=== PATIENT | female | born 1985 | race Caucasian/White ===

== ENCOUNTER 2017-03-13 22:17 | Emergency (ER) | payer MEDICAID ==
[2017-03-13 22:27] VITALS: RESP 16; O2SAT 97
--- NOTE | 2017-03-13 23:03 | EDPHY ---
H & P Stated Complaint: JACKSON, "white out" HPI/ROS: HPI CHIEF COMPLAINT: Multiple complaints HISTORY OF PRESENT ILLNESS: This patient very pleasant 31-year-old female denies any significant medical history she presents emergency room with multitude of symptoms. She states over the past year she has been intermittently dealing with pressure in her head as well as intermittent visual disturbances. She states she was at home this evening. She did not feel very well. She states she feels ill but will not describe any specific symptoms. She went saw her primary care doctor today about her symptoms and was set up for blood work and an outpatient EEG. She has not done the EEG. She presents emergency room this evening after she states she was seated outside resting. All the sudden she developed white numbness across her vision. Pressure in her head. No loss of vision. No curtain vision. No eye pain. No floaters. No arch you. No neck pain. She denies chest pain or shortness of breath. Patient states that she felt somewhat confused. She thinks maybe a migraine headache. She had this happen to her eye year ago. She was worked up for MS. she states she was not diagnosed with MS. She also tells me initially that she electrical shock going throughout her entire body at times. Starts in her posterior neck was throughout her head down her body. Diffusely. Additionally she reports to me if this event everything was purple. She Now is feeling better. But does state she has pressure in her head. She is unsure there is a migraine headache. She denies any focal numbness or tingling. Denies weakness. Denies trouble with speech. There is no bowel bladder incontinence. She did not bite her tongue. There is no double vision. Additionally she denies chest pain, shortness of breath, abdominal pain. Denies diarrhea. Does state she had nausea. And 1 episode of vomiting. Past Medical History: No significant medical history Past Surgical History: Social History: Smokes tobacco, denies illicit drugs or alcohol. Family History: Noncontributory ROS REVIEW OF SYSTEMS: A comprehensive 10 point review of systems is otherwise negative aside from elements mentioned in the history of present illness. Exam Constitutional appears well, nontoxic, triage nursing summary reviewed, vital signs reviewed, awake/alert. Eyes normal conjunctivae and sclera, EOMI, PERRLA. HENT normal inspection, atraumatic, moist mucus membranes, no epistaxis, neck supple/ no meningismus, no raccoon eyes. Respiratory clear to auscultation bilaterally, normal breath sounds, no respiratory distress, no wheezing. Cardiovascular rate normal, regular rhythm, no murmur, no edema, distal pulses normal. Gastrointestinal soft, non-tender, no rebound, no guarding, normal bowel sounds, no distension, no pulsatile mass. Genitourinary no CVA tenderness. Musculoskeletal no midline vertebral tenderness, full range of motion, no calf swelling, no tenderness of extremities, no meningismus, good pulses, neurovascularly intact. Skin pink, warm, & dry, no rash, skin atraumatic. Neurologic I do not appreciate focal neurological deficit on exam, normal neuro exam for me, awake, alert and oriented x 3, AAOx3, moves all 4 extremities equally, motor intact, sensory intact, CN II-XII intact, normal cerebellar, normal vision, normal speech. Psychiatric normal mood/affect. Heme/Lymph/Immune no lymphadenopathy. Differential Diagnosis: Includes but is not limited to in a particular order: Migraine headaches, MS, seizure, focal seizure, intracranial bleed, electrolyte disturbance, infection Medical Decision Making: Plan for this patient workup CT scan head without contrast rule out acute intracranial abnormality, additionally blood work, urinalysis, EKG. Gentle IV hydration Zofran for nausea. Re-evaluation: EKG interpretation by me on record in [facility] system. Impression time of EKG 2322, sinus rhythm rate of 87 some motion artifact. T-wave abnormality V3 flattening the to. No ST elevation. No significant ST depression. 1218AM: On re-evaluation patient resting comfortably. Asymptomatic. No headache. No chest pain or shortness of breath. No focal weakness numbness or tingling. Re-examination normal neurological exam no focal neuro deficit. Her workup here in emergency room includes CT scan of her head which is unremarkable , blood work which is unremarkable normal electrolytes and no high white count, urinalysis clean. I do recommend she follows with her primary care doctor as well as Neurology. I have no evidence of intracranial bleed, seizure, or severe headache. Recommend close follow-up with primary care doctor as well as Neurology. I do feel that she would benefit from an MRI at some point but not emergently in the ER. MRI for MS protocol. She understands this. Additionally she understands return to the ER she develops worsening symptoms questions or concerns. Source: Patient - Personal History LMP (Females 10-55): IUD In Place Current Tetanus/Diphtheria Vaccine: Yes Current Tetanus Diphtheria and Acellular Pertussis (TDAP): Yes - Medical/Surgical History Hx Asthma: No Hx Chronic Respiratory Disease: No Hx Diabetes: No Hx Cardiac Disease: No Hx Renal Disease: No Hx Cirrhosis: No Hx Alcoholism: No Hx HIV/AIDS: No Hx Splenectomy or Spleen Trauma: No - Social History Smoking Status: Former smoker Constitutional: Initial Vital Signs Temperature (C) 37 C 03/13/17 22:25 Heart Rate 94 03/13/17 22:25 Respiratory Rate 16 03/13/17 22:25 Blood Pressure 108/71 03/13/17 22:25 O2 Sat (%) 97 03/13/17 22:25 O2 Delivery Mode Room Air Allergies/Adverse Reactions: metronidazole [From Flagyl] Allergy (Verified 03/13/17 22:23) stevia Allergy (Uncoded 03/13/17 22:24) Home Medications: Medication Instructions Recorded None 07/11/10 Ativan 11/10/15 MIRENA 03/13/17 Spironolactone 03/13/17 Medical Decision Making - Diagnostics Imaging Results: Imaging Impressions Head CT 03/13/17 23:14 Impression: 1. No significant intracranial abnormality seen. If symptoms worsen, additional imaging may be necessary. Findings discussed with Eliazar Yang MD at 23:58 hour, 03/13/2017. - Data Points Laboratory Results: Laboratory Results 03/13/17 03:00 03/13/17 03:00 03/13/17 03/13/17 03/13/17 23:30 03:00 03:00 WBC RBC Hgb Hct MCV MCH MCHC RDW Plt Count MPV Neut % (Auto) Lymph % (Auto) [place] % (Auto) Eos % (Auto) Baso % (Auto) Nucleat RBC Rel Count Absolute Neuts (auto) Absolute Lymphs (auto) Absolute Monos (auto) Absolute Eos (auto) Absolute Basos (auto) Absolute Nucleated RBC Immature Gran % Immature Gran # PT INR Sodium 140 mEq/L mEq/L (134-144) Potassium 3.7 mEq/L mEq/L (3.5-5.2) Chloride 105 mEq/L mEq/L (97-110) Carbon Dioxide 22 mEq/l mEq/l (22-31) Anion Gap 13 mEq/L mEq/L (8-16) BUN 10 mg/dL mg/dL (7-23) Creatinine 0.6 mg/dL mg/dL (0.6-1.0) Estimated GFR > 60 Glucose 132 mg/dL H mg/dL (70-100) Calcium 9.1 mg/dL mg/dL (8.5-10.4) Troponin I < 0.012 ng/mL ng/mL (0.000-0.034) Beta HCG, Qual NEGATIVE Urine Color YELLOW Urine Appearance HAZY Urine pH 5.0 (5.0-7.5) Ur Specific [place] 1.012 (1.002-1.030) Urine Protein NEGATIVE (NEGATIVE) Urine Ketones NEGATIVE (NEGATIVE) Urine Blood 1+ H (NEGATIVE) Urine Nitrate NEGATIVE (NEGATIVE) Urine Bilirubin NEGATIVE (NEGATIVE) Urine Urobilinogen NEGATIVE EU EU (0.2-1.0) Ur Leukocyte Esterase NEGATIVE (NEGATIVE) Urine RBC 1-3 /hpf /hpf (0-3) Urine WBC 1-3 /hpf /hpf (0-3) Ur Epithelial Cells TRACE /lpf /lpf (NONE-1+) Urine Bacteria TRACE /hpf H /hpf (NONE SEEN) Urine Mucus TRACE /lpf /lpf (NONE-1+) Urine Glucose NEGATIVE (NEGATIVE) 03/13/17 03/13/17 03:00 03:00 WBC 6.34 10^3/uL 10^3/uL (3.80-9.50) RBC 4.21 10^6/uL 10^6/uL (4.18-5.33) Hgb 13.8 g/dL g/dL (12.6-16.3) Hct 39.4 % % (38.0-47.0) MCV 93.6 fL fL (81.5-99.8) MCH 32.8 pg pg (27.9-34.1) MCHC 35.0 g/dL g/dL (32.4-36.7) RDW 11.7 % % (11.5-15.2) Plt Count 243 10^3/uL 10^3/uL (150-400) MPV 10.7 fL fL (8.7-11.7) Neut % (Auto) 51.1 % % (39.3-74.2) Lymph % (Auto) 38.8 % % (15.0-45.0) [place] % (Auto) 7.1 % % (4.5-13.0) Eos % (Auto) 2.2 % % (0.6-7.6) Baso % (Auto) 0.6 % % (0.3-1.7) Nucleat RBC Rel Count 0.0 % % (0.0-0.2) Absolute Neuts (auto) 3.24 10^3/uL 10^3/uL (1.70-6.50) Absolute Lymphs (auto) 2.46 10^3/uL 10^3/uL (1.00-3.00) Absolute Monos (auto) 0.45 10^3/uL 10^3/uL (0.30-0.80) Absolute Eos (auto) 0.14 10^3/uL 10^3/uL (0.03-0.40) Absolute Basos (auto) 0.04 10^3/uL 10^3/uL (0.02-0.10) Absolute Nucleated RBC 0.00 10^3/uL 10^3/uL (0-0.01) Immature Gran % 0.2 % % (0.0-1.1) Immature Gran # 0.01 10^3/uL 10^3/uL (0.00-0.10) PT 13.1 SEC SEC (12.0-15.0) INR 1.00 (0.83-1.16) Sodium Potassium Chloride Carbon Dioxide Anion Gap BUN Creatinine Estimated GFR Glucose Calcium Troponin I Beta HCG, Qual Urine Color Urine Appearance Urine pH Ur Specific [place] Urine Protein Urine Ketones Urine Blood Urine Nitrate Urine Bilirubin Urine Urobilinogen Ur Leukocyte Esterase Urine RBC Urine WBC Ur Epithelial Cells Urine Bacteria Urine Mucus Urine Glucose Medications Given: Discontinued Medications Sodium Chloride (Ns) 1,000 mls @ 0 mls/hr IV ONCE ONE; Wide Open PRN Reason: Protocol Stop: 03/13/17 23:15 Last Admin: 03/13/17 23:19 Dose: 1,000 mls Ondansetron HCl (Zofran) 4 mg IVP EDNOW ONE Stop: 03/13/17 23:15 Last Admin: 03/14/17 00:18 Dose: Not Given Departure - Departure Disposition: Home, Routine, Self-Care Clinical Impression: Dizziness Condition: Good Instructions: Lightheadedness (ED), Dizziness (ED) Additional Instructions: 1. Return to the emergency room if he develops worsening symptoms questions or concerns. 2. Stay well-hydrated. 3. Please follow up with your primary care doctor. 4. Additionally please follow up with Neurology. Referrals: Lolly Mccoy MD [Primary Care Provider] - As per Instructions Scotty Aguilar DO [Medical Doctor] - As per Instructions
[2017-03-13] MEDS ORDERED: ONDANSETRON 4 MG/2 ML VIAL IVP ONE (23:14)
[2017-03-13] MEDS ORDERED: NS 1,000 ML IV ONE (23:14)
[2017-03-13 23:24] LABS: % IMMATURE GRANULYOCYTES 0.2 % (0.0-1.1); ABSOLUTE IMMATURE GRANULOCYTES 0.01 10^3/uL (0.00-0.10); ADD DIFF? NO; ADD MORPH? NO; ADD SCAN? NO; ATYPICAL LYMPHOCYTE FLAG 20 (0-99); FRAGMENT RBC FLAG 0 (0-99); HEMATOCRIT 39.4 % (38.0-47.0); HEMOGLOBIN 13.8 g/dL (12.6-16.3); LEFT SHIFT FLG 0 (0-99); LIPEMIA HEMOLYSIS FLAG 90 (0-99); MEAN CELL HEMOGLOBIN 32.8 pg (27.9-34.1); MEAN CELL VOLUME 93.6 fL (81.5-99.8); MEAN PLATELET VOLUME 10.7 fL (8.7-11.7); PLATELET CLUMPS FLAG 20 (0-99); PLATELET COUNT 243 10^3/uL (150-400); RED BLOOD CELL COUNT 4.21 10^6/uL (4.18-5.33); RED CELL DISTRIBUTION WIDTH 11.7 % (11.5-15.2)
--- NOTE | 2017-03-13 23:24 | CPEKG ---
Heart Rate: 87 RR Interval: 690 P-R Interval: 172 QRSD Interval: 90 QT Interval: 340 QTC Interval: 409 P [place]: 59 QRS [place]: 78 T Wave [place]: 6 EKG Severity - BORDERLINE ECG - EKG Impression: SINUS RHYTHM EKG Impression: INFERIOR Q WAVES, PROBABLY NORMAL VARIATION EKG Impression: BORDERLINE T ABNORMALITIES, ANTERIOR LEADS Electronically Signed By: Eliazar Yang 14-Mar-2017 06:58:32
[2017-03-13 23:30] LABS: PROTIME(PATIENT) 13.1 SEC (12.0-15.0)
[2017-03-13 23:42] LABS: COLOR YELLOW; LEUKOCYTE ESTERASE,URINE NEGATIVE (NEGATIVE); NITRITE,URINE NEGATIVE (NEGATIVE)
[2017-03-13 23:45] LABS: BACTERIA TRACE /hpf (NONE SEEN); MUCUS TRACE /lpf (NONE-1+)
[2017-03-14 00:03] LABS: ANION GAP 13 mEq/L (8-16); CALCIUM 9.1 mg/dL (8.5-10.4); CARBON DIOXIDE 22 mEq/l (22-31); CHLORIDE 105 mEq/L (97-110); CREATININE 0.6 mg/dL (0.6-1.0); GLOMERULAR FILTRATION RATE > 60; GLUCOSE 132 mg/dL (70-100); POTASSIUM 3.7 mEq/L (3.5-5.2); SODIUM 140 mEq/L (134-144)
[2017-03-14 00:11] LABS: TROPONIN I < 0.012 ng/mL (0.000-0.034)
[2017-03-14 00:29] VITALS: BP 110/62; PULSE 77; TEMP 98.1
== END 2017-03-14 00:31 | disposition home or self-care (01) ==
DX: R42 Dizziness and giddiness (principal); E86.9 Volume depletion, unspecified; Z87.891 Personal history of nicotine dependence
CPT/HCPCS: 82607-90; J2405

== ENCOUNTER 2017-03-17 13:39 | Emergency (ER) | payer MEDICAID ==
[2017-03-17 13:46] VITALS: BP 110/64; PULSE 82; RESP 16; TEMP 98.8; O2SAT 97
--- NOTE | 2017-03-17 15:03 | EDPHY ---
H & P Time Seen by Provider: 03/17/17 14:30 HPI/ROS: CHIEF COMPLAINT: eye shakiness, feels strange HISTORY OF PRESENT ILLNESS: 31-year-old female presents with eye shakiness and feeling strange. She three-week history of intermittent episodes that tend again with visual changes. She describes bilateral eye shakiness and bright lights in her vision. She sometimes has an increased sense of smell as well, followed by head pressure. She occasionally blacks out, by which she means that her vision goes fussy. She does not lose consciousness. She is concerned that she is having acute stroke. She has been seen multiple times for similar symptoms, most recently 4 days ago in the emergency department. Laboratory studies and CT scan of her brain ordered. She is scheduled for an EEG and for neurology follow-up with Dr. Stephens. Ativan makes her symptoms better and she has been taking 1/2 mg daily intermittently, which seems to control her symptoms. She has felt quite anxious and has been reading a lot on the Internet. REVIEW OF SYSTEMS: Constitutional: No fever, no chills ENT: No sore throat Respiratory: No cough, no shortness of breath Cardiac: No chest pain Gastrointestinal: No nausea, no vomiting, no abdominal pain Genitourinary: No hematuria, no dysuria Musculoskeletal: No leg pain or swelling Skin: No rash Neurological: no numbness, no weakness Psychiatric: Anxious Past Medical/Surgical History: Migraine headaches Social History: Single PCP: Dr. Shukla Smoking Status: Current every day smoker Physical Exam: General Appearance: Alert, pleasant, appears anxious Eyes: Pupils equal and round, no conjunctival pallor or injection, no nystagmus ENT, Mouth: Mucous membranes moist Neck: Normal inspection Respiratory: normal respiratory rate Cardiovascular: Regular rate and rhythm Gastrointestinal: Abdomen is soft and nontender Neurological: A&O, nonfocal, normal gait Skin: Warm and dry Extremities: normal inspection Psychiatric: Anxious Constitutional: Initial Vital Signs Temperature (C) 37.1 C 03/17/17 13:43 Heart Rate 82 03/17/17 13:43 Respiratory Rate 16 03/17/17 13:43 Blood Pressure 110/64 03/17/17 13:43 O2 Sat (%) 97 03/17/17 13:43 O2 Delivery Mode Room Air Allergies/Adverse Reactions: metronidazole [From Flagyl] Allergy (Verified 03/17/17 13:42) stevia Allergy (Uncoded 03/13/17 22:24) Home Medications: Medication Instructions Recorded LORazepam [Ativan (*)] 0.5 mg PO 03/17/17 Levonorgestrel [Mirena] 1 each IY 03/17/17 Spironolactone [Aldactone 25 MG 03/17/17 (*)] Medical Decision Making ED Course/Re-evaluation: This patient presents with recurrent symptoms, most likely secondary to migraine headache, with anxiety probably contributing to her symptoms. I doubt that she is having frequent seizure activity. However, she has the appropriate follow-up planned, including EEG and neurology appointment. I reviewed her past medical record, including her recent ER visit. I do not feel that further evaluation is indicated today. Differential Diagnosis: Headache including but not limited to subarachnoid hemorrhage, seizure, migraine headache, tension headache and infectious causes such as meningitis, pharyngitis and sinusitis. Departure - Departure Disposition: Home, Routine, Self-Care Clinical Impression: Visual changes Condition: Good Instructions: Blurred Vision (ED), Migraine Headache (ED) Referrals: Lolly Mccoy MD [Primary Care Provider] - As per Instructions
== END 2017-03-17 15:02 | disposition home or self-care (01) ==
DX: H53.8 Other visual disturbances (principal); F17.200 Nicotine dependence, unspecified, uncomplicated

== ENCOUNTER → 2017-03-20 | Outpatient (CLI) | payer MEDICAID ==
--- NOTE | 2017-03-20 13:39 | CPEEG ---
[f rep st] ELECTROENCEPHALOGRAM DATE OF STUDY: 03/20/2017 INTERPRETATION: Normal EEG during wakefulness and sleep. There were no potentially epileptogenic abnormalities present during the recording. REPORT: This EEG contains 9 Hz alpha activity to the posterior head regions. There was no abnormal activation at rest, during photic stimulation, or hyperventilation. The patient became drowsy and intermittently fell asleep during the study. There was no abnormal activation during drowsiness, sleep, or during times of arousal. The patient reported having a migraine during the study. There were no EEG changes with the migraine, as expected with this disorder. /[id number]/MODL MTDD
== END ==
LOC: FCPNEURO 10:56
PROVIDERS: ATTEND Family Medicine
DX: R25.3 Fasciculation (principal)

== ENCOUNTER → 2017-03-29 | Outpatient (CLI) | payer MEDICAID ==
[~2017-03-29] MED LIST: GADOBUTROL 10 ML VIAL IVP ONE
== END ==
LOC: FIMAGING 19:58
PROVIDERS: ATTEND Family Medicine
DX: G43.009 Migraine without aura, not intractable, without status migrainosus (principal)
CPT/HCPCS: A9585